=== PATIENT | female | born 1930 | race Caucasian/White ===

== ENCOUNTER → 2016-07-08 | Day surgery (SDC) | payer OTHER, MEDICARE ==
[~2016-07-08] VITALS: Ht 157.5 cm; Wt 55.3 kg
[~2016-07-08] MED LIST: DEXAMETHASONE1 M1 PO; FUROSEMIDE20 M1 PO; HYDROCHLOROTHIA25 M1 PO; LEVOTHYROXINE75 MCG PO; NINLARO2.3 MG; [UNRECOGNIZED DRUG - OTHER]
--- NOTE | 2016-07-08 15:12 | Operative Report ---
Operative/Inv Procedure Report Surgery Date: 07/08/16 Name of Procedure: Right second hammertoe correction Pre-Operative Diagnosis: Right second hammertoe deformity Post-Operative Diagnosis: Same Estimated Blood Loss: none Surgeon/Dispatcher Refinery: YUSEF SPANGLER MD Anesthesia: local monitored anesthesi IV Fluids: See anesthesia record Implants: 0.045 K wire Specimens: Bone to pathology and microbiology Tourniquet: 23 minutes Complications: None Condition: Stable Operative Indication: Patient is a pleasant 86-year-old female severe right hammertoe deformity on the second digit. She is having significant redness and swelling. There is also pinpoint drainage. She had an MRI which was inconclusive for osteomyelitis. She was indicated for hammertoe correction. The risks and benefits the procedure were discussed the patient in detail. Operative/Procedure Note Note: Once informed consent was obtained and the correct limb was identified the patient brought to operative room placed on table supine position. After the administration of sedation a ankle block was performed with 30 mL of 0.5% Marcaine without epinephrine and 10 mL of 1% lidocaine without epinephrine. The right foot was prepped and draped in usual sterile fashion. To begin the procedure an elliptical incision was made over the PIP joint of the second toe. Sharp dissection carried down to the joint. The collateral ligament inferiorly sharply with a #15 blade. The condyle of the proximal phalanx was exposed and a phalangectomy was performed just proximal to the metaphyseal flare of the second proximal phalanx. Bone was passed off and split into specimen to microbiology and pathology. Once this was done a 0.045 K wires placed through the middle and distal phalanx and brought out the tip of the toe. The toe was then reduced and the K wire was placed in a retrograde fashion back through the proximal phalanx for fixation. The wound was irrigated and the incision was closed with 3-0 nylon interrupted sutures. Sterile dressing was applied and the patient was awakened taken recovery in stable condition.
== END ==
LOC: STS 02:24
DX: M20.41 Other hammer toe(s) (acquired), right foot (principal); C90.00 Multiple myeloma not having achieved remission; I10 Essential (primary) hypertension; E78.5 Hyperlipidemia, unspecified; E03.9 Hypothyroidism, unspecified; K21.9 Gastro-esophageal reflux disease without esophagitis
CPT/HCPCS: 87070; 87075; 87184; 87147; 88304